=== PATIENT | male | born 1930 | race Caucasian/White ===

== ENCOUNTER 2020-08-18 15:34 | Emergency (ER) | payer MEDICAID, MEDICARE, OTHER ==
[~2020-08-18] VITALS: Ht 167.6 cm; Wt 78.0 kg
--- NOTE | 2020-08-18 15:35 | NUR ---
Placed in room 08 . Placed on nurse monitoring, blood pressure machine and pulse oximeter. To gown for exam. Side rails up.
[2020-08-18 15:36] VITALS: BP_SYST 120; BP_SYST 130
--- NOTE | 2020-08-18 15:40 | NUR ---
Patient AAO BIB by ambulance for low BP and dizziness 2hr S/P COVID vaccine. Per EMS patient receieved 1 dose of nitro from family d/t patient stating having chest pain. Upon assessment patient denies any chest pain, SOB at this time. stated having nausea for the past couple of hours and hasnt been able to eat. currently pain level is 0/10 on the pain scale. awaiting for MD evaluation.
[2020-08-18] MEDS ORDERED: NACL 0.9% 1,000 ML IV ONE (15:45)
[2020-08-18] MEDS ORDERED: ONDANSETRON HCL 4 MG/2 ML VIAL IVP ONE (15:45)
--- NOTE | 2020-08-18 15:47 | NUR ---
Dr. stockton at bedside for patient evaluation.
--- NOTE | 2020-08-18 15:50 | NUR ---
lab at bedside to collect blood specimen and sent to lab for analysis.
--- NOTE | 2020-08-18 16:20 | NUR ---
Portable chest xray done at bedside.
[2020-08-18 16:22] LABS: ANION GAP 7 (5-15); CALCIUM 9.2 mg/dL (8.4-11.0); CHLORIDE 96 mmol/L (98-107); CREATININE 1.39 mg/dL (0.55-1.30); GLUCOSE 109 mg/dL (70-99); POTASSIUM 3.9 mmol/L (3.5-5.1); SODIUM SERUM 130 mmol/L (136-145); UREA NITROGEN, BLOOD 19 mg/dL (8-21)
[2020-08-18 16:37] LABS: BASOPHILS % (AUTO) 0.3 % (0.0-2.0); EOSINOPHILS # (AUTO) 0.1 K/uL (0.0-0.4); HEMATOCRIT 35.6 % (36-54); HEMOGLOBIN 12.3 g/dL (14.0-18.0); LYMPHOCYTES % (AUTO) 12.2 % (20.5-51.5); MEAN CORPUSCULAR HEMOGLOBIN 31 pg (27-31); MEAN CORPUSCULAR HGB CONC 34 % (32-36); MEAN CORPUSCULAR VOLUME 91 fL (79.0-98.0); MONOCYTES # (AUTO) 0.6 K/uL (0.0-1.0); MONOCYTES % (AUTO) 7.2 % (1.7-9.3); NEUTROPHILS # (AUTO) 6.7 K/uL (1.8-7.7); NEUTROPHILS % (AUTO) 79.3 % (40.0-70.0); PLATELET COUNT (AUTO) 135 K/uL (130-430); RED BLOOD CELL COUNT(AUTO) 3.93 MIL/uL (4.2-6.2); RED CELL DISTRIBUTION WIDTH 13.4 % (9.0-15.0); WHITE BLOOD COUNT (AUTO) 8.4 K/uL (4.8-10.8)
[2020-08-18 17:12] LABS: BILIRUBIN,URINE NEGATIVE (NEGATIVE); BLOOD, URINE NEGATIVE (NEGATIVE); CLARITY/URINE CLEAR (CLEAR); COLOR,URINE YELLOW (YELLOW); GLUCOSE,URINE NEGATIVE (NEGATIVE); KETONES,URINE NEGATIVE (NEGATIVE); LEUKOCYTE ESTERASE ,URINE NEGATIVE (NEGATIVE); NITRITE, URINE NEGATIVE (NEGATIVE); PROTEIN URINE NEGATIVE (NEGATIVE); UROBILINOGEN,URINE 0.2 (0.2-1.0)
[2020-08-18 20:00] VITALS: BP_SYST 127
--- NOTE | 2020-08-18 20:00 | NUR ---
Patient given written and verbal discharge instructions and verbalizes understanding. Dr. Tadeo AYALA MD discussed with patient the results and treatment provided. Patient in stable condition. ID arm band removed. IV catheter removed intact and dressing applied, no active bleeding. Patient educated on pain management and to follow up with PMD. Pain Scale 0/10. Opportunity for questions provided and answered. Medication side effect fact sheet provided. education over Nitro given to son ([email or web address]).
== END 2020-08-18 20:00 | disposition home or self-care (01) ==
LOC: SED 15:34
DX: E86.0 Dehydration (principal); I10 Essential (primary) hypertension; R55 Syncope and collapse; M79.18 Myalgia, other site; Z20.822 Contact with and (suspected) exposure to COVID-19
CPT/HCPCS: 36415; 71045; 80048; 81003; 83605; 83880; 84484; 85025; 87040; 93005; 96361; 96374; 99285; J2405; J7030